=== PATIENT | female | born 1935 | race Caucasian/White ===

== ENCOUNTER 2018-10-19 10:16 | Emergency (ER) | payer OTHER ==
--- OUTSIDE RECORDS SUMMARY | 2018-10-19 10:20 | XMS REPORT | Clinical Summary ---
:1935 Author Organization [facility] Address [address] [place] [address] Care Team Providers Name Role Phone Unavailable Primary Care Provider Unavailable Allergies Active Allergy Reactions Severity Noted Date Comments Salicylates Other (See Comments) 06/08/2016 Pt stated "bleeding" Rosuvastatin 06/08/2016 Desvenlafaxine 06/08/2016 Ezetimibe-Simvastatin 06/08/2016 Medications Medication Sig Dispensed Refills Start Date End Date Status meclizine (ANTIVERT) 25 Take 25 mg by 0 Active MG tablet mouth daily as needed for Dizziness. BIOTIN ORAL Take by mouth. [address] vaginally. 0 Active (PREMARIN) 0.625 mg/gram vaginal cream DOCOSAHEXANOIC ACID/EPA Take by mouth. 0 Active (FISH OIL ORAL) GLUCOSAMINE/CHONDROITIN Take by mouth. 0 Active SULF A (GLUCOSAMINE-CHONDROITIN ORAL) coenzyme Q10 (COQ-10) Take by mouth 0 Active 100 mg capsule daily. CHOLECALCIFEROL, VITAMIN Take by mouth. 0 Active D3, (VITAMIN D3 ORAL) [id number] Take by mouth. 0 Active ORAL nutritional supplement - Take by mouth. 0 Active fiber (JUICE PLUS) Liqd Active Problems Problem Noted Date CVA (cerebral vascular accident) 06/09/2016 Social History Tobacco Use Types Packs/Day Years Used Date Never Smoker Sex Assigned at Date Recorded Not on file Job Start Date Occupation Industry Not on file Not on file Not on file Travel History Travel Start Travel End No recent travel history available. Last Filed Vital Signs Not on file Plan of Treatment Not on file Results Not on fileafter 10/18/2017 Insurance Payer Benefit Plan / Group Subscriber ID Type Phone Address MEDICARE MEDICARE A B xxxxxxxxxx Medicare AETNA - MGD CARE AETNA TRS RETIREES xxxxxxxxxx HMO/POS ([place]) [place] [address]
--- NOTE | 2018-10-19 11:47 | RAD REPORT ---
EXAM DESCRIPTION: RAD - Chest Single View - 10/19/2018 11:41 am CLINICAL HISTORY: CHEST PAIN Chest pain. COMPARISON: Chest Single View dated 01/01/2017; Chest Single View dated 06/08/2016; CHEST PA AND LAT 2 VIEW dated 03/18/2013; CHEST SINGLE VIEW dated 05/16/2012 FINDINGS: Portable technique limits examination quality. Mild emphysematous changes present throughout the lungs. The heart is normal in size. No displaced fr actures. IMPRESSION: Mild COPD.
[2018-10-19 12:12] LABS: Absolute Lymphocytes (CBC) 1.4 K/uL (0.7-4.9); Absolute Monocytes 0.6 K/uL (0.1-1.3); Absolute Neutrophil 3.5 K/uL (1.8-8.0); Basophils % 0.4 % (0-1.3); Eosinophils % 1.9 % (0-4.4); Hematocrit 39.4 % (36.0-45.0); Lymphocytes % 25.3 % (15.3-44.8); MPV 8.9 fL (7.6-11.3); Monocytes % 10.4 % (3.3-12.3); RBC Red Blood Cell Count 4.21 M/uL (3.86-4.86)
[2018-10-19 12:30] LABS: BUN Blood Urea Nitrogen 17 mg/dL (7-18); Bicarbonate 30 mmol/L (21-32); Glucose Level 84 mg/dL (74-106); Potassium 3.8 mmol/L (3.5-5.1); Sodium Level 143 mmol/L (136-145); Troponin (Emerg Dept Use Only) < 0.02 ng/mL (0.0-0.045)
--- NOTE | 2018-10-19 13:02 | EDPHYS ---
Physician Documentation [facility] Name: Matthew North Age: 83 yrs Sex: Female : 1935 Arrival Date: 10/19/2018 Time: 10:20 Bed 4 Private MD: Felipe Ackerman V ED Physician Cali Mckoy HPI: 10/19 12:46 This 83 yrs old Female presents to ER via Ambulatory with complaints of gs Foreign Body In Throat. 12:46 Onset: gradually, yesterday. Associated signs and symptoms: Pertinent positives: chest gs pain, Pertinent negatives: shortness of breath. The chest pain is described as dull. Duration: The patient or guardian reports a single episode, that is now resolved. Modifying factors: The symptoms are alleviated by nothing. the symptoms are aggravated by nothing. Severity of pain: At its worst the pain was moderate in the emergency department the pain has resolved. started after taking a pill felt like didn't go down pain throat and chest resolved her for evaluation. Historical: - Allergies: 10:37 Aspirin; aj1 - Home Meds: 10:37 Aspirin Oral [Active]; atorvastatin 80 mg Oral tab 1 tab once daily [Active]; biotin aj1 Oral [Active]; Calcium with Magnesium [Active]; CoQ-10 Oral [Active]; Fish Oil Oral [Active]; Glucosamine Oral [Active]; Meclizine Oral [Active]; Mirtazapine Oral [Active]; Premarin [Active]; Vitamin D Oral [Active]; - PMHx: 10:37 CVA; Depression; [place]; Vertigo; aj1 - Immunization history:: Flu vaccine is up to date. - Social history:: Smoking status: Patient/guardian denies using tobacco. - Ebola Screening: : Patient denies travel to an Ebola-affected area in the 21 days before illness onset. ROS: 12:46 All other systems are negative. gs Exam: 12:46 Head/Face: Normocephalic, atraumatic. Eyes: Pupils equal round and reactive to light, gs extra-ocular motions intact. Lids and lashes normal. Conjunctiva and sclera are non-icteric and not injected. Cornea within normal limits. Periorbital areas with no swelling, redness, or edema. ENT: Nares patent. No nasal discharge, no septal abnormalities noted. Tympanic membranes are normal and external auditory canals are clear. Oropharynx with no redness, swelling, or masses, exudates, or evidence of obstruction, uvula midline. Mucous membranes moist. Neck: Trachea midline, no thyromegaly or masses palpated, and no cervical lymphadenopathy. Supple, full range of motion without nuchal rigidity, or vertebral point tenderness. No Meningismus. Chest/axilla: Normal chest wall appearance and motion. Nontender with no deformity. No lesions are appreciated. Cardiovascular: Regular rate and rhythm with a normal S1 and S2. No gallops, murmurs, or rubs. Normal PMI, no JVD. No pulse deficits. Respiratory: Lungs have equal breath sounds bilaterally, clear to auscultation and percussion. No rales, rhonchi or wheezes noted. No increased work of breathing, no retractions or nasal flaring. Abdomen/GI: Soft, non-tender, with normal bowel sounds. No distension or tympany. No guarding or rebound. No evidence of tenderness throughout. Back: No spinal tenderness. No costovertebral tenderness. Full range of motion. Skin: Warm, dry with normal turgor. Normal color with no rashes, no lesions, and no evidence of cellulitis. MS/ Extremity: Pulses equal, no cyanosis. Neurovascular intact. Full, normal range of motion. Neuro: Awake and alert, GCS 15, oriented to person, place, time, and situation. Cranial nerves II-XII grossly intact. Motor strength 5/5 in all extremities. Sensory grossly intact. Cerebellar exam normal. Normal gait. 12:46 Constitutional: The patient appears alert, awake. 12:46 ECG was reviewed by the Attending Physician. Vital Signs: 10:37 BP 129 / 87; Pulse 76; Resp 18; Temp 97.9; Pulse Ox 100% on R/A; Weight 61.23 kg (R); aj1 Height 5 ft. 4 in. (162.56 cm) (R); Pain 3/10; 12:04 BP 127 / 68; Pulse 68; Resp 18; Pulse Ox 100% on R/A; ph 10:37 Body Mass Index 23.17 (61.23 kg, 162.56 cm) aj1 MDM: 11:21 Patient medically screened. gs 12:46 Differential diagnosis: coronary artery disease chest wall pain, pharyngeal abrasion. gs Data reviewed: vital signs, nurses notes. Counseling: I had a detailed discussion with the patient and/or guardian regarding: the historical points, exam findings, and any diagnostic results supporting the discharge/admit diagnosis, the need for outpatient follow up. Response to treatment: the patient's symptoms have resolved after treatment, and as a result, I will discharge patient. 10/19 11:22 Order name: Basic Metabolic Panel; Complete Time: 12:45 10/19 11:22 Order name: CBC with Diff; Complete Time: 12:45 10/19 11:22 Order name: Troponin (emerg Dept Use Only); Complete Time: 12:45 10/19 11:22 Order name: XRAY Chest (1 view); Complete Time: 11:56 10/19 11:22 Order name: Cardiac monitoring; Complete Time: 11:51 10/19 11:22 Order name: EKG - Nurse/Tech; Complete Time: 12:24 10/19 11:22 Order name: IV Saline Lock; Complete Time: 11: 10/19 11:22 Order name: Labs collected and sent; Complete Time: 11:52 10/19 11:22 Order name: O2 Per Protocol; Complete Time: :52 10/19 11:22 Order name: O2 Sat Monitoring; Complete Time: : EC:46 Rate is 70 beats/min. Rhythm is regular. [place] interval is normal. QRS interval is normal. gs T waves are Normal. No ST changes noted. Clinical impression: Normal ECG. Interpreted by me. Administered Medications: No medications were administered Disposition: 10/19/18 13:01 Discharged to Home. Impression: pharyngeal abrasion. - Condition is Stable. - Discharge Instructions: Swallowed Foreign Body, Adult. - Medication Reconciliation Form, Thank You Letter, Antibiotic Education, Prescription Opioid Use form. - Follow up: Private Physician; When: 2 - 3 days; Reason: Re-evaluation by your physician. Signatures: Dispatcher [employer] Temi Blanchard RN RN aj1 Nivia Andrade RN RN sv Cali Mckoy MD MD gs Corrections: (The following items were deleted from the chart) 13:19 13:01 10/19/2018 13:01 Discharged to Home. Impression: pharyngeal abrasion. Condition sv is Stable. Forms are Medication Reconciliation Form, Thank You Letter, Antibiotic Education, Prescription Opioid Use. Follow up: Private Physician; When: 2 - 3 days; Reason: Re-evaluation by your physician. gs
--- NOTE | 2018-10-19 13:02 | ER ---
Nurse's Notes [facility] Name: Matthew North Age: 83 yrs Sex: Female : 1935 Arrival Date: 10/19/2018 Time: 10:20 Bed 4 Private MD: Felipe Ackerman V Diagnosis: pharyngeal abrasion Presentation: 10/19 10:33 Presenting complaint: Patient states: "Yesterday about 5 I swallowed a calcium pill and aj1 it just seemed like it wouldn't go down and it never did go down." Reports that she still has the sensation of something stuck in her throat. [facility] called EMS this morning at 0700, they did an EKG, and patient declined transfer at that time. Denies shortness of breath, difficulty swallowing. Transition of care: patient was not received from another setting of care. Onset of symptoms was October 18, 2018 at 17:00. Risk Assessment: Do you want to hurt yourself or someone else? Patient reports no desire to harm self or others. Initial Sepsis Screen: Does the patient meet any 2 criteria? No. Patient's initial sepsis screen is negative. Does the patient have a suspected source of infection? No. Patient's initial sepsis screen is negative. Care prior to arrival: None. 10:33 Method Of Arrival: Ambulatory aj1 10:33 Acuity: LARRY 3 aj1 Triage Assessment: 10:37 General: Appears in no apparent distress. comfortable, Behavior is calm, cooperative, aj1 appropriate for age. Pain: Complains of pain in neck Pain currently is 3 out of 10 on a pain scale. Neuro: Level of Consciousness is awake, alert, obeys commands. Cardiovascular: Patient's skin is warm and dry. Respiratory: Airway is patent Respiratory effort is even, unlabored, Respiratory pattern is regular, symmetrical. Historical: - Allergies: 10:37 Aspirin; aj1 - Home Meds: 10:37 Aspirin Oral [Active]; atorvastatin 80 mg Oral tab 1 tab once daily [Active]; biotin aj1 Oral [Active]; Calcium with Magnesium [Active]; CoQ-10 Oral [Active]; Fish Oil Oral [Active]; Glucosamine Oral [Active]; Meclizine Oral [Active]; Mirtazapine Oral [Active]; Premarin [Active]; Vitamin D Oral [Active]; - PMHx: 10:37 CVA; Depression; [place]; Vertigo; aj1 - Immunization history:: Flu vaccine is up to date. - Social history:: Smoking status: Patient/guardian denies using tobacco. - Ebola Screening: : Patient denies travel to an Ebola-affected area in the 21 days before illness onset. Screenin:03 Abuse screen: Denies threats or abuse. Denies injuries from another. Nutritional ph screening: No deficits noted. Tuberculosis screening: No symptoms or risk factors identified. Fall Risk None identified. Assessment: 11:05 General: Appears in no apparent distress. comfortable, slender, well groomed, Behavior ph is calm, cooperative, appropriate for age, Denies fever, feeling ill. Pain: Denies pain. Neuro: Level of Consciousness is awake, alert, obeys commands, Oriented to person, place, time, situation. Cardiovascular: Reports chest pain, last night after swallowing a calcium tablet, states, " It was hurting all last night. It isn't really hurting now but I figured I should come get it checked out." Pt reports slight discomfort in substernal area Denies nausea, shortness of breath, vomiting, Rhythm is regular. Respiratory: Airway is patent Respiratory effort is even, unlabored, Breath sounds are clear bilaterally. Denies shortness of breath pain with respiration. EENT: Reports pain when swallowing Denies difficulty swallowing. Derm: Skin is intact, Skin is pink, warm \\T\\ dry. Musculoskeletal: Circulation, motion, and sensation intact. Range of motion: intact in all extremities, Swelling absent. 12:04 Reassessment: Patient appears in no apparent distress at this time. Patient and/or ph family updated on plan of care and expected duration. Pain level reassessed. Patient is alert, oriented x 3, equal unlabored respirations, skin warm/dry/pink. Pt resting quietly at this time, VSS, awaiting lab and CXR results, family at bedside. Vital Signs: 10:37 BP 129 / 87; Pulse 76; Resp 18; Temp 97.9; Pulse Ox 100% on R/A; Weight 61.23 kg (R); aj1 Height 5 ft. 4 in. (162.56 cm) (R); Pain 3/10; 12:04 BP 127 / 68; Pulse 68; Resp 18; Pulse Ox 100% on R/A; ph 10:37 Body Mass Index 23.17 (61.23 kg, 162.56 cm) aj1 ED Course: 10:20 Patient arrived in ED. sb2 10:20 Felipe Ackerman MD is Private Physician. sb2 10:35 Triage completed. aj1 10:37 Arm band placed on Patient placed in an exam room. aj1 10:41 Cali Mckoy MD is Attending Physician. gs 10:50 Anastasia Valerio RN is Primary Nurse. ph 11:41 X-ray completed. Portable x-ray completed in exam room. Patient tolerated procedure sg4 well. 11:42 XRAY Chest (1 view) In Process Unspecified. EDMS 11:55 Initial lab(s) drawn, by me, sent to lab. Inserted saline lock: 22 gauge in left ph antecubital area, using aseptic technique. Blood collected. 12:03 Patient has correct armband on for positive identification. Placed in gown. Bed in low ph position. Call light in reach. Side rails up X 1. waiver analyst on. Pulse ox on. NIBP on. Warm blanket given. 12:24 EKG done, by ED staff, reviewed by Cali Mckoy MD. em1 Administered Medications: No medications were administered Outcome: 13:01 Discharge ordered by . 13:19 Patient left the ED. sv Signatures: Dispatcher [employer] EDMS Temi Vergara RN RN aj1 Nivia Andrade RN RN sv Martinez, Eric em1 Anastasia Valerio RN RN Cali Mckoy MD MD Jaclyn Herrera sb2 Neda Puentes sg4 Corrections: (The following items were deleted from the chart) 10:35 10:33 Presenting complaint: Patient states: "Yesterday about 5 I swallowed a calcium aj1 pill and it just seemed like it wouldn't go down and it never did go down." Reports that she still has the sensation of something stuck in her throat. [facility] called EMS this morning at 0700, they did an EKG, and patient declined transfer at that time. aj1
[2018-10-19 13:24] VITALS: TEMP 97.9; O2SAT 100
[2018-10-19 13:25] VITALS: BP 127/68
--- NOTE | 2018-10-20 12:00 | EKG ---
Test Date: 2018-10-19 Test Time: 12:05:20 Social Scientist: GLENDY MEASUREMENT RESULTS: Intervals: Rate: 70 RI: 164 QRSD: 70 QT: 384 QTc: 414 [place]: P: -21 RI: 164 QRS: 34 T: 17 INTERPRETIVE STATEMENTS: Normal sinus rhythm Normal ECG Compared to ECG 01/01/2017 02:06:34 No significant changes Electronically Signed On 10-20-18 11:59:49 PROCESS COACH by Fortino Shane
== END 2018-10-19 13:19 | disposition home or self-care (01) ==
LOC: ER 10:16
DX: S10.11XA Abrasion of throat, initial encounter (principal); X58.XXXA Exposure to other specified factors, initial encounter; Y93.89 Activity, other specified; Y92.9 Unspecified place or not applicable; Z86.73 Personal history of transient ischemic attack (TIA), and cerebral infarction without residual deficits; Z88.6 Allergy status to analgesic agent; F32.9 Major depressive disorder, single episode, unspecified
CPT/HCPCS: 36415; 71045; 80048; 84484; 85025; 93005; 99284

== ENCOUNTER 2019-03-12 09:42 | Emergency (ER) | payer OTHER ==
--- OUTSIDE RECORDS SUMMARY | 2019-03-12 09:54 | XMS REPORT | Clinical Summary ---
:1935 Author Organization [facility] Address [address] [place] [address] Care Team Providers Name Role Phone Unavailable [...] mouth. 0 Active D3, (VITAMIN D3 ORAL) [id number] Take by mouth. 0 Active ORAL nutritional [...] Not on file Results Not on fileafter 03/11/2018 Insurance Payer Benefit Plan / Group Subscriber ID Type Phone Address MEDICARE MEDICARE A B xxxxxxxxxx Medicare AETNA - MGD CARE AETNA TRS RETIREES xxxxxxxxxx HMO/POS ([place]) [place] [address]
[2019-03-12 10:33] LABS: Absolute Lymphocytes (CBC) 0.6 K/uL (0.7-4.9); Absolute Monocytes 0.4 K/uL (0.1-1.3); Basophils % 0.2 % (0-1.3); Eosinophils % 1.3 % (0-4.4); Lymphocytes % 9.4 % (15.3-44.8); MPV 8.6 fL (7.6-11.3); RBC Red Blood Cell Count 4.18 M/uL (3.86-4.86)
[2019-03-12] MEDS ORDERED: NA CHLORIDE 0.9% 1,000 ML ONE (10:33)
[2019-03-12 10:34] LABS: Protime INR 1.05
[2019-03-12 10:35] LABS: Urine Blood TRACE (NEG); Urine Glucose NEGATIVE (NEG); Urine Protein NEGATIVE (NEG); Urine Specific Gravity 1.015 (1.005-1.030)
[2019-03-12 10:59] LABS: ALT/SGPT 29 U/L (12-78); AST/SGOT 21 U/L (15-37); Albumin 3.5 g/dL (3.4-5.0); Alkaline Phosphatase 43 U/L (45-117); BUN Blood Urea Nitrogen 19 mg/dL (7-18); Bicarbonate 28 mmol/L (21-32); Bilirubin Direct 0.1 mg/dL (0-0.2); Bilirubin Total 0.5 mg/dL (0.2-1.0); Glucose Level 89 mg/dL (74-106); NT PRO-BNP 70 pg/mL (<450); Protein, Total 7.1 g/dL (6.4-8.2); Sodium Level 143 mmol/L (136-145); Troponin (Emerg Dept Use Only) < 0.02 ng/mL (0.0-0.045)
--- NOTE | 2019-03-12 11:10 | EKG ---
Test Date: 2019-03-12 Test Time: 10:31:43 Final Canoe Inspector: CINDI MEASUREMENT RESULTS: Intervals: Rate: 76 [place]: 164 QRSD: 78 QT: 366 QTc: 411 [place]: P: 55 [place]: 164 QRS: 26 T: 23 INTERPRETIVE STATEMENTS: Normal sinus rhythm Normal ECG Compared to ECG 10/19/2018 12:05:20 No significant changes Electronically Signed On 03-12-19 11:09:34 CDT by Rodri Randall
--- NOTE | 2019-03-12 11:19 | RAD REPORT ---
EXAM DESCRIPTION: RAD - Chest Single View - 03/12/2019 11:12 am CLINICAL HISTORY: COUGH Chest pain. COMPARISON: Chest Pa And Lat (2 Views) dated 02/12/2019; Chest Single View dated 10/19/2018; Chest Sing le View dated 01/01/2017; Chest Single View dated 06/08/2016 FINDINGS: Portable technique limits examination quality. Diffuse COPD is present. The heart is normal in size. No displaced fractures. IMPRESSION: Prominent COPD.
--- NOTE | 2019-03-12 11:26 | RAD REPORT ---
EXAM DESCRIPTION: MRI - Brain Wo Cont - 03/12/2019 11:17 am CLINICAL HISTORY: Dizziness COMPARISON: 2016 TECHNIQUE: Axial, sagittal, and coronal magnetic images of the brain were obtained. Contrast was not requested FINDINGS: Mild to moderate signal within periventricular, deep and subcortical white matter without significant change likely ischemic changes secondary to small vessel disease. Diffusion-weighted/ADC mapping does not reveal evidence of acute infarction. The ventricles are normal caliber. An extra-axial fluid collection is not present The sinuses and mastoids are clear. IMPRESSION: No acute abnormality displayed
--- NOTE | 2019-03-12 12:24 | ER ---
Nurse's Notes [facility] Name: Matthew North Age: 83 yrs Sex: Female : 1935 Arrival Date: 03/12/2019 Time: 09:44 Bed 7 Private MD: Diagnosis: Nausea and vomiting;Weakness Presentation: 03/12 09:44 Presenting complaint: EMS states: pt reports having breakfast and then walking back to her apartment at [facility], becoming nauseated and dizzy, reports laying down for a nap but unable to sleep with the nausea. Transition of care: patient was not received from another setting of care. Onset of symptoms was March 12, 2019. Risk Assessment: Do you want to hurt yourself or someone else? Patient reports no desire to harm self or others. Initial Sepsis Screen: Does the patient meet any 2 criteria? No. Patient's initial sepsis screen is negative. Does the patient have a suspected source of infection? No. Patient's initial sepsis screen is negative. Care prior to arrival: None. 09:44 Method Of Arrival: EMS: [facility] 09:44 Acuity: LARRY 3 sg Historical: - Allergies: 09:49 Aspirin; sg - Home Meds: 11:45 Premarin 3 times weekly [Active]; mirtazapine 7.5 mg oral tab nightly [Active]; sv atorvastatin 80 mg Oral tab 1 tab once daily [Active]; aspirin 81 mg oral chew once daily [Active]; Pure encapsulation 2 each day [Active]; Glucosamine 1000 mg daily Oral [Active]; Calcium w/ Magnesium and zinc 1 tab daily [Active]; lutein 20 mg oral tab daily [Active]; - PMHx: 09:49 CVA; Depression; [place]; Vertigo; sg - Immunization history:: Adult Immunizations up to date. - Social history:: Smoking status: Patient/guardian denies using tobacco. - Ebola Screening: : Patient negative for fever greater than or equal to 101.5 degrees Fahrenheit, and additional compatible Ebola Virus Disease symptoms Patient denies exposure to infectious person Patient denies travel to an Ebola-affected area in the 21 days before illness onset No symptoms or risks identified at this time. - Family history:: not pertinent. Vital Signs: 09:46 Pulse 82; Resp 16; Temp 97.7; Pulse Ox 97% on R/A; sg 09:50 BP 133 / 69; sg NIH Stroke Scale Scores: 10:41 NIHSS Score: 0 hawa ED Course: 09:44 Patient arrived in ED. 09:46 Triage completed. 09:46 Arm band placed on. 09:53 Gennaro Gomes MD is Attending Physician. hawa 10:34 Initial lab(s) drawn, by fl, sent to lab. Urine collected: clean catch specimen, clear, ms Amount Voided: 40mL EKG done, by ED staff, reviewed by Gennaro Gomes MD. Inserted saline lock: 20 gauge in right antecubital area, using aseptic technique. Blood collected. 10:38 EKG done, by compressor technician. reviewed by Gennaro Gomes MD. 3 11:10 Brain Wo Cont In Process Unspecified. EDMS 11:11 X-ray completed. Portable x-ray completed in exam room. Patient tolerated procedure mh1 well. 11:14 XRAY Chest (1 view) In Process Unspecified. EDMS 11:17 Patient moved to MRI via wheelchair. 11:54 Repeat EKG was done. 3 13:08 Andrea Barkley, RN is Primary Nurse. sg Administered Medications: 10:31 Drug: NS 0.9% 500 ml Route: IV; Rate: bolus; Site: right antecubital; sv 11:00 Follow up: Response: No adverse reaction; IV Status: Completed infusion; IV Intake: sv 500ml 10:35 Drug: NS 0.9% 1000 ml Route: IV; Rate: 125 ml/hr; Site: right antecubital; sv Intake: 11:00 IV: 500ml; Total: 500ml. sv Outcome: 12:23 Discharge ordered by . hawa 13:09 Patient left the ED. NIH Stroke Scale - NIH Stroke Score Date: 03/12/2019 Time: 10:41 Total Score = 0 1a. Level of Consciousness (LOC) - 0(Alert) 1b. Level of Consciousness (LOC) (Year \T\ Age) - 0(Both) 1c. LOC Commands (Open \T\ Closes Eyes/News Copy Editor) - 0(Both) 2. Best Gaze (Lateral Gaze Paresis) - 0(Normal) 3. Visual Field Loss - 0(No visual loss) 4. Facial Palsy - 0(Normal) 5a. Left Arm: Motor (10-second hold) - 0(No drift) 5b. Right Arm: Motor (10-second hold) - 0(No drift) 6a. Left Leg: Motor (5-second hold - always test supine) - 0(No drift) 6b. Right Leg: Motor (5-second hold - always test supine) - 0(No drift) 7. Limb Ataxia (finger/nose \T\ heel/lockhart - test with eyes open) - 0(Absent) 8. Sensory Loss (pinprick arms/legs/face) - 0(Normal) 9. Best Language: Aphasia (description/naming/reading) - 0(No aphasia) 10. Dysarthria (speech clarity - read or repeat words) - 0(Normal) 11. Extinction and Inattention (visual/tactile/auditory/spatial/personal) - 0(No abnormality) Initials: hawa Signatures: Dispatcher [employer] Nivia Potts RN RN sv Gay, Steven, RN RN sg Anderson, Corey, MD MD cha Compean, Lorena lc Harvey, Martha 1 Shahla Gimenez ms, Jayshree 3
--- NOTE | 2019-03-12 12:25 | EDPHYS ---
Physician Documentation [facility] Name: Matthew North Age: 83 yrs Sex: Female : 1935 Arrival Date: 03/12/2019 Time: 09:44 Bed 7 Private MD: ED Physician Gennaro Gomes HPI: 03/12 10:41 This 83 yrs old Female presents to ER via EMS with complaints of hawa Nausea/Vomiting. 10:41 The patient presents to the emergency department with nausea, vomiting. Onset: The hawa symptoms/episode began/occurred this morning, today. Possible causes: unknown. The symptoms are aggravated by movement, The symptoms are alleviated by nothing. Associated signs and symptoms: Pertinent positives: nausea, vomiting. Severity of symptoms: At their worst the symptoms were. The patient has not experienced similar symptoms in the past. Historical: - Allergies: 09:49 Aspirin; sg - Home Meds: 11:45 Premarin 3 times weekly [Active]; mirtazapine 7.5 mg oral tab nightly [Active]; sv atorvastatin 80 mg Oral tab 1 tab once daily [Active]; aspirin 81 mg oral chew once daily [Active]; Pure encapsulation 2 each day [Active]; Glucosamine 1000 mg daily Oral [Active]; Calcium w/ Magnesium and zinc 1 tab daily [Active]; lutein 20 mg oral tab daily [Active]; - PMHx: 09:49 CVA; Depression; QUECHAN; Vertigo; sg - Immunization history:: Adult Immunizations up to date. - Social history:: Smoking status: Patient/guardian denies using tobacco. - Ebola Screening: : Patient negative for fever greater than or equal to 101.5 degrees Fahrenheit, and additional compatible Ebola Virus Disease symptoms Patient denies exposure to infectious person Patient denies travel to an Ebola-affected area in the 21 days before illness onset No symptoms or risks identified at this time. - Family history:: not pertinent. ROS: 10:41 Constitutional: Negative for fever, chills, and weight loss, Eyes: Negative for injury, hawa pain, redness, and discharge, ENT: Negative for injury, pain, and discharge, Neck: Negative for injury, pain, and swelling, Cardiovascular: Negative for chest pain, palpitations, and edema, Respiratory: Negative for shortness of breath, cough, wheezing, and pleuritic chest pain, Back: Negative for injury and pain, : Negative for injury, bleeding, discharge, and swelling, MS/Extremity: Negative for injury and deformity, Skin: Negative for injury, rash, and discoloration, Neuro: Negative for headache, weakness, numbness, tingling, and seizure, Psych: Negative for depression, anxiety, suicide ideation, homicidal ideation, and hallucinations, Allergy/Immunology: Negative for hives, rash, and allergies, Endocrine: Negative for neck swelling, polydipsia, polyuria, polyphagia, and marked weight changes, Hematologic/Lymphatic: Negative for swollen nodes, abnormal bleeding, and unusual bruising. 10:41 Abdomen/GI: Positive for nausea and vomiting. Exam: 10:41 Constitutional: This is a well developed, well nourished patient who is awake, alert, hawa and in no acute distress. Head/Face: Normocephalic, atraumatic. Eyes: Pupils equal round and reactive to light, extra-ocular motions intact. Lids and lashes normal. Conjunctiva and sclera are non-icteric and not injected. Cornea within normal limits. Periorbital areas with no swelling, redness, or edema. ENT: Nares patent. No nasal discharge, no septal abnormalities noted. Tympanic membranes are normal and external auditory canals are clear. Oropharynx with no redness, swelling, or masses, exudates, or evidence of obstruction, uvula midline. Mucous membranes moist. Neck: Trachea midline, no thyromegaly or masses palpated, and no cervical lymphadenopathy. Supple, full range of motion without nuchal rigidity, or vertebral point tenderness. No Meningismus. Chest/axilla: Normal chest wall appearance and motion. Nontender with no deformity. No lesions are appreciated. Cardiovascular: Regular rate and rhythm with a normal S1 and S2. No gallops, murmurs, or rubs. Normal PMI, no JVD. No pulse deficits. Respiratory: Lungs have equal breath sounds bilaterally, clear to auscultation and percussion. No rales, rhonchi or wheezes noted. No increased work of breathing, no retractions or nasal flaring. Abdomen/GI: Soft, non-tender, with normal bowel sounds. No distension or tympany. No guarding or rebound. No evidence of tenderness throughout. Back: No spinal tenderness. No costovertebral tenderness. Full range of motion. Skin: Warm, dry with normal turgor. Normal color with no rashes, no lesions, and no evidence of cellulitis. MS/ Extremity: Pulses equal, no cyanosis. Neurovascular intact. Full, normal range of motion. Neuro: Awake and alert, GCS 15, oriented to person, place, time, and situation. Cranial nerves II-XII grossly intact. Motor strength 5/5 in all extremities. Sensory grossly intact. Cerebellar exam normal. Normal gait. Psych: Awake, alert, with orientation to person, place and time. Behavior, mood, and affect are within normal limits. Vital Signs: 09:46 Pulse 82; Resp 16; Temp 97.7; Pulse Ox 97% on R/A; sg 09:50 BP 133 / 69; sg NIH Stroke Scale Scores: 10:41 NIHSS Score: 0 hawa MDM: 09:53 Patient medically screened. [facility] 10:43 Data reviewed: vital signs, nurses notes, lab test result(s), EKG, radiologic studies, [facility] CT scan, MRI, plain films. 03/12 10:08 Order name: Basic Metabolic Panel; Complete Time: 11:27 [facility] 03/12 10:08 Order name: CBC with Diff; Complete Time: 10:39 [facility] 03/12 10:08 Order name: LFT's; Complete Time: 11:27 [facility] 03/12 10:08 Order name: Magnesium; Complete Time: 11:27 [facility] 03/12 10:08 Order name: NT PRO-BNP; Complete Time: 11:27 [facility] 03/12 10:08 Order name: PT-INR; Complete Time: 11:27 [facility] 03/12 10:08 Order name: Troponin (emerg Dept Use Only); Complete Time: 11:27 [facility] 03/12 10:08 Order name: XRAY Chest (1 view); Complete Time: 11:27 [facility] 03/12 10:08 Order name: Urine Culture [facility] 03/12 10:33 Order name: Urine Dipstick--Ancillary (enter results); Complete Time: 10:39 03/12 11:29 Order name: Troponin (emerg Dept Use Only): 1135am; Complete Time: 12:17 [facility] 03/12 10:08 Order name: EKG; Complete Time: 10:13 [facility] 03/12 10:08 Order name: Cardiac monitoring; Complete Time: 10:34 [facility] 03/12 10:08 Order name: EKG - Nurse/Tech; Complete Time: 10:34 [facility] 03/12 10:08 Order name: IV Saline Lock; Complete Time: 10:34 [facility] 03/12 10:08 Order name: Labs collected and sent; Complete Time: 10:34 [facility] 03/12 10:08 Order name: O2 Per Protocol; Complete Time: 10:34 [facility] 03/12 10:08 Order name: O2 Sat Monitoring; Complete Time: 10:34 [facility] 03/12 10:08 Order name: Urine Dipstick-Ancillary (obtain specimen); Complete Time: 10:33 [facility] 03/12 10:46 Order name: Brain Wo Cont; Complete Time: 11:27 [facility] 03/12 11:29 Order name: EKG; Complete Time: 11:32 [facility] 03/12 11:29 Order name: EKG - Nurse/Tech; Complete Time: 11:45 [facility] Administered Medications: 10:31 Drug: NS 0.9% 500 ml Route: IV; Rate: bolus; Site: right antecubital; sv 11:00 Follow up: Response: No adverse reaction; IV Status: Completed infusion; IV Intake: sv 500ml 10:35 Drug: NS 0.9% 1000 ml Route: IV; Rate: 125 ml/hr; Site: right antecubital; sv Disposition: 03/12/19 12:23 Discharged to Home. Impression: Nausea and vomiting, Weakness. - Condition is Stable. - Discharge Instructions: Weakness, Fatigue, Weakness, Lbxy-id-Buwb, Aspirin and Your Heart. - Prescriptions for Zofran 4 mg Oral Tablet - take 1 tablet by ORAL route every 12 hours As needed; 14 tablet. Meclizine 25 mg Oral Tablet - take 1 tablet by ORAL route every 8 hours As needed; 21 tablet. - Medication Reconciliation Form, Thank You Letter, Antibiotic Education, Prescription Opioid Use form. - Follow up: Private Physician; When: 2 - 3 days; Reason: Recheck today's complaints, Continuance of care, Re-evaluation by your physician. - Problem is new. - Symptoms have improved. NIH Stroke Scale - NIH Stroke Score Date: 03/12/2019 Time: 10:41 Total Score = 0 1a. Level of Consciousness (LOC) - 0(Alert) 1b. Level of Consciousness (LOC) (Year \T\ Age) - 0(Both) 1c. LOC Commands (Open \T\ Closes Eyes/Corrosion Control Fitter) - 0(Both) 2. Best Gaze (Lateral Gaze Paresis) - 0(Normal) 3. Visual Field Loss - 0(No visual loss) 4. Facial Palsy - 0(Normal) 5a. Left Arm: Motor (10-second hold) - 0(No drift) 5b. Right Arm: Motor (10-second hold) - 0(No drift) 6a. Left Leg: Motor (5-second hold - always test supine) - 0(No drift) 6b. Right Leg: Motor (5-second hold - always test supine) - 0(No drift) 7. Limb Ataxia (finger/nose \T\ heel/lockhart - test with eyes open) - 0(Absent) 8. Sensory Loss (pinprick arms/legs/face) - 0(Normal) 9. Best Language: Aphasia (description/naming/reading) - 0(No aphasia) 10. Dysarthria (speech clarity - read or repeat words) - 0(Normal) 11. Extinction and Inattention (visual/tactile/auditory/spatial/personal) - 0(No abnormality) Initials: hawa Signatures: Dispatcher [employer] [facility] Nivia Andrade RN RN sv Gay, Steven, RN RN sg Anderson, Corey, MD MD cha Corrections: (The following items were deleted from the chart) 10:45 10:43 MR STROKE PROTOCOL+MRI.RAD.BRZ ordered. [facility] 13:09 12:23 03/12/2019 12:23 Discharged to Home. Impression: Nausea and vomiting; sg Weakness. Condition is Stable. Discharge Instructions: Weakness, Fatigue, Weakness, Kair-yc-Keqv, Aspirin and Your Heart. Prescriptions for Zofran 4 mg Oral Tablet - take 1 tablet by ORAL route every 12 hours As needed; 14 tablet. and Forms are Medication Reconciliation Form, Thank You Letter, Antibiotic Education, Prescription Opioid Use. Follow up: Private Physician; When: 2 - 3 days; Reason: Recheck today's complaints, Continuance of care, Re-evaluation by your physician. Problem is new. Symptoms have improved. hawa
[2019-03-12 18:06] VITALS: TEMP 97.7; O2SAT 97
[2019-03-12 18:07] VITALS: BP 133/69
--- NOTE | 2019-03-13 07:20 | EKG ---
Test Date: 2019-03-12 Test Time: 11:42:34 [employer]: CINDI MEASUREMENT RESULTS: Intervals: Rate: 79 PA: 154 QRSD: 78 QT: 374 QTc: 428 [place]: P: -18 PA: 154 QRS: 45 T: 13 INTERPRETIVE STATEMENTS: Normal sinus rhythm Possible Inferior infarct, age undetermined Abnormal ECG Compared to ECG 03/12/2019 10:31:43 Myocardial infarct finding now present Electronically Signed On 03-13-19 07:16:13 CDT by Rodri Randall
== END 2019-03-12 13:09 | disposition home or self-care (01) ==
LOC: ER 09:42
DX: R11.2 Nausea with vomiting, unspecified (principal); R53.1 Weakness; Z86.73 Personal history of transient ischemic attack (TIA), and cerebral infarction without residual deficits; F32.9 Major depressive disorder, single episode, unspecified
CPT/HCPCS: 93005 ×2; 87088; 85025; 87086; 80048; 36415; 83735; 85610; 80076; 81003; 84484 ×2; 83880; 71045; 70551; 99285; J7030

== ENCOUNTER 2020-07-29 07:16 | Emergency (ER) | payer OTHER ==
--- OUTSIDE RECORDS SUMMARY | 2020-07-29 07:24 | XMS REPORT ---
:1935 Author Organization [facility] Address [address] [facility] [address] [place] [address] Care Team Providers Name Role Phone Sourav Bermudez Unavailable [phone] PROBLEMS No Information ALLERGIES No Known Allergies ENCOUNTERS from 1935 to 2020-07-07 Encounter Location Date Provider Diagnosis [facility] [address] Jun, Sourav Bermudez Pain , joint, [facility], [place], operated [facility] [address], right [place], [place] M25.511 ; Subac romial [id number] bursitis of rig ht shoulder joint M75.51 and Bicipital tendinitis of r ight shoulder M75.21 IMMUNIZATIONS Vaccine Route Administration Date Status Bupivicaine [place] Unknown Jul 05, 2020 Administered Kenalog (Triamcinolone) Unknown Jul 05, 2020 Administ ered SOCIAL HISTORY Tobacco Use: Social History Observation Description Date Details (start date - stop date) Never Smoker Sex Assigned At : Social History Observation Description Sex Assigned At Unknown Alcohol Screen Question Answer Notes Did you have a drink containing alcohol in the past Yes year? Points 1 Interpretation Negative How often did you have 6 or more drinks on one Never (0 poin ts) occasion in the past year? How many drinks did you have on a typical day when 1 or 2 (0 points) you were drinking in the past year? How often did you have a drink containing alcohol in Monthly or less (1 point) the past year? Tobacco Use/Smoking Question Answer Notes Are you a never smoker Additional Findings: Tobacco Non-User Current non-smoker REASON FOR REFERRAL No Information VITAL SIGNS Height 64 in Jun, Weight 130.4 lbs Jun, BMI 22.38 kg/m2 Jun, Blood pressure systolic 112 mm Hg Jun, Blood pressure diastolic 72 mm Hg Jun, MEDICATIONS Medication SIG (Take, Route, Frequency, Duration) Start Date En d Date Status Myrbetriq Active Mirtazapine Active Premarin Active Pantoprazole Sodium Active atorvastatin Active Gaviscon Active Meclizine HCl Active PROCEDURES No Information RESULTS No Results REASON FOR VISIT New >3yrs: Rt Shoulder- xray ( silva pt) MEDICAL (GENERAL) HISTORY Type Description Date Medical History dizzy spells Medical History stroke spring 2016 Medical History depression Medical History GERD Surgical History oral surgery -metal Goals Section No Information Health Concerns No Information MEDICAL EQUIPMENT No Information MENTAL STATUS No Information FUNCTIONAL STATUS No Information ASSESSMENTS Encounter Date Diagnosis Notes Jun, Pain, joint, shoulder, right (ICD-10 - M 25.511) Jun, Bicipital tendinitis of right shoulder ( ICD-10 - M75.21) Jun, Subacromial bursitis of right shoulder j oint (ICD-10 - M75.51) PLAN OF TREATMENT Treatment Notes Assessment Notes Clinical Notes Subacromial bursitis of right I discussed with the patient a t shoulder joint length her diagnosis and treatment plan and he expressed understanding. We will proceed with conservative treatment measures including corticosteroid injection and home exercise program. The patient underwent right shoulder subacromial kenalog injection without complication. The patient was instructed to refrain from strenuous activities for the next 24 hours and to ice the area. She will return to clinic as needed. Bicipital tendinitis of right discussed with the patient at length shoulder her diagnosis and treatment plan and he expressed understanding. We will proceed with conservative treatment measures including corticosteroid injection and home exercise program. The patient underwent right shoulder subacromial kenalog injection without complication. The patient was instructed to refrain from strenuous activities for the next 24 hours and to ice the area. She will return to clinic as needed. Treatment Notes Test Name Order Date X-RAY EXAM SHOULDER 2 VIEWS ([id number]) 2020-07-07 Next Appt Details prn Reason: Insurance Providers Payer Name Payer Address Payer Insured Patient Coverage Cover age End Phone Name Relationship to Start Date Edward e Insured [employer] [address] [address] [phone] Jerome Yi MEDICARE [place] 023 e [phone]
--- OUTSIDE RECORDS SUMMARY | 2020-07-29 07:24 | XMS REPORT | Continuity of Care Document ---
:1935 Author Organization [facility] t Address [address] [place] [address] Care Team Providers Name Role Phone Unavailable Unavailable Unavailable Problems Condition Condition Condition Status Onset Resolution Last Treating Co mments Source Name Details Category Date Date Treatment Clinician Date CVA CVA Disease Active [facility]rebral [facility]-09 [place] [facility] - vascular vascular 00:00: Medica l accident) accident) 00 Cent er Allergies, Adverse Reactions, Alerts Allergy Allergy Status Severity Reaction(s) Onset Inactive Treating Comm ents Source Name Type Date Date Clinician Salicyla Drug Active Other (See Pt stated [facility] Comments) 06-08 "bleeding Rafaela kes - nce 00:00: " Medical 00 Raphine Rosuvast Drug Active [facility]: Medical 00 Center Desvenla Drug Active [facility] fax[facility] 06[facility]08 [facility] 00:00: Medical 00 Center Ezetimib Drug Active [facility] 06-08 [facility] - tatin nce 00:00: Medical 00 Raphine Social History Social Habit Start Date Stop Date Quantity Comments Source Sex Assigned At [facility] Alcohol intake 2016-06-08 2016-06-[address] [facility] - 00:00:00 00:00:00 Medical Center Smoking Status Start Date Stop Date Source Never smoker [facility] Medications Ordered Filled Start Stop Current Ordering Indication Dosage Frequency Signature Comments Components Source Medication Medication Date Date Medication? Clinician (SIG) Name Name mecjazminzine Yes 25mg Take [address] (ANTIVERT) 06-09 by mouth [facility] - 25 MG 13:23: daily as Medical tablet 49 needed for Center Dizziness. BIOTIN ORAL Yes Take by [facility] St 06-09 mouth. [facility] - 13:23: [place] [address] [facility] estrogens -03 vaginally. Luke s - (PREMARIN) 13:23: Medical 0.625 Center mg/gram vaginal cream DOCOSAHEXAN Yes Take by [facility] OIC 06-09 mouth. [facility] - ACID/EPA 13:23: Medical (FISH OIL 49 Center ORAL) GLUCOSAMINE Yes Take by [facility] /CHONDROITI 06-09 mouth. [facility] - N SULF A 13:23: Medical (GLUCOSAMIN Center E-CHONDROIT IN ORAL) coenzyme Yes QD Take by [facility] Q10 06-09 mouth [facility] - (COQ-10) 13:23: daily. Medical 100 mg Center capsule CHOLECALCIF Yes Take by [facility] RENAE, 06-09 mouth. [facility] - VITAMIN D3, 13:23: Medica l (VITAMIN D3 49 Center ORAL) CALCIUM-MAG Yes Take by [facility] NESIUM-ZINC 06-09 mouth. [facility] - ORAL 13:23: [place] [address] Center nutritional Yes Take by [facility] supplement 06-09 mouth. [facility] - - fiber 13:23: Medical (JUICE Center PLUS) Liqd Procedures This patient has no known procedures. Encounters Start End Encounter Admission Attending Care Care Encounter Source Date/Time Date/Time Type Type Clinicians Facility Department ID 2020-07-05 2020-07-05 [facility] [id number] [facility] 00:00:00 00:00:00 [facility] Results This patient has no known results.
--- OUTSIDE RECORDS SUMMARY | 2020-07-29 07:24 | XMS REPORT | Clinical Summary ---
:[address] [facility] Address [address] [place] [address] Care Team Providers Name Role Phone Unavailable Primary Care Provider Unavailable Allergies Active Allergy Reactions Severity Noted Date Comments Salicylates Other (See Comments) 06/08/2016 Pt stat ed "bleeding" Rosuvastatin 06/08/2016 Desvenlafaxine 06/08/2016 Ezetimibe-Simvastatin 06/08/2016 Medications Medication Sig Dispensed Refills Start Date End Date Status meclizine (ANTIVERT) 25 Take 25 mg by 0 Active MG tablet mouth daily as needed for Dizziness. BIOTIN ORAL Take by mouth. 0 Act [address]iza conjugated estrogens Place vaginally. 0 Active (PREMARIN) 0.625 mg/gram vaginal cream DOCOSAHEXANOIC ACID/EPA Take by mouth. 0 Active (FISH OIL ORAL) GLUCOSAMINE/CHONDROITIN Take by mouth. 0 Active SULF A (GLUCOSAMINE-CHONDROITIN ORAL) coenzyme Q10 (COQ-10) Take by mouth 0 Active 100 mg capsule daily. CHOLECALCIFEROL, VITAMIN Take by mouth. 0 Active D3, (VITAMIN D3 ORAL) [id number] Take by mouth. 0 Active ORAL nutritional supplement - Take by mouth. 0 Active fiber (JUICE PLUS) Liqd Active Problems Problem Noted Date CVA (cerebral vascular accident) 06/09/2016 Social History Tobacco Use Types Packs/Day Years Used Date Never Smoker Alcohol Use Drinks/Week oz/Week Comments Not Asked Sex Assigned at Date Recorded Not on file Last Filed Vital Signs Not on file Plan of Treatment Not on file Results Not on fileafter 07/29/2019 Insurance Payer Benefit Plan / Subscriber ID Effective Dates Phone Addre ss Type Group MEDICARE MEDICARE A B [id number] 1999-Present Medicare AETNA - MGD CARE AETNA TRS [id number] 2012-Presen HMO/POS RETIREES t
[2020-07-29 08:31] LABS: Absolute Lymphocytes (CBC) 1.4 K/uL (0.7-4.9); Basophils % 0.6 % (0-1.3); Hematocrit 37.8 % (36.0-45.0); Lymphocytes % 25.9 % (15.3-44.8); MPV 8.3 fL (7.6-11.3); RBC Red Blood Cell Count 4.16 M/uL (3.86-4.86)
[2020-07-29 08:52] LABS: Albumin 3.6 g/dL (3.4-5.0); Bilirubin Direct 0.2 mg/dL (0-0.2); Bilirubin Total 0.4 mg/dL (0.2-1.0); Potassium 3.8 mmol/L (3.5-5.1); Protein, Total 7.3 g/dL (6.4-8.2)
[2020-07-29 09:56] LABS: Urine Blood 2+ (NEG); Urine Glucose NEGATIVE (NEG); Urine Protein NEGATIVE (NEG); Urine pH 8.5 (5.0-7.0)
--- NOTE | 2020-07-29 10:56 | RAD REPORT ---
EXAM DESCRIPTION: CTAbdomen Pelvis W Contrast - 07/29/2020 10:47 am CLINICAL HISTORY: Abdominal pain. rectal/vaginal bleeding;Abd pain COMPARISON: No comparisons TECHNIQUE: Biphasic CT imaging of the abdomen and pelvis was performed with 100 ml non-ionic IV cont rast. All CT scans are performed using dose optimization technique as appropriate and may include automated exposure control or mA/KV adjustment according to patient size. FINDINGS: The lower lung funes are mildly emphysematous. The liver demonstrates no focal lesion or biliary dilatation. The spleen, pancreas and kidneys are wi thin normal limits. Mild nodularity of both adrenal glands. No bowel obstruction, free air, free fluid or abscess. Sigmoid diverticulosis coli without diverticul itis. The appendix is normal. No evidence of significant lymphadenopathy. Endometrial stripe appears dilated to 2.5 cm. In this age group, this is a worrisome finding. No suspicious bony findings. IMPRESSION: Abnormally dilated endometrial stripe in an otherwise atrophic uterus. In this age group , this degree of dilatation could indicate endometrial carcinoma and direct tissue sampling would be suggested.
--- NOTE | 2020-07-29 11:35 | ER ---
Nurse's Notes [facility] Name: Matthew North Age: 85 yrs Sex: Female : 1935 Arrival Date: 07/29/2020 Time: 07:20 Bed 17 Private MD: Diagnosis: Abnormal uterine and vaginal bleeding, unspecified Presentation: 07/29 07:33 Chief complaint: Patient states: started having bright red rectal bleeding yesterday sv and then might be having vaginal bleeding. Pt is unsure where its coming from. Reports constipation. Denies abd pain/n/v/d. Reports that she has been taking ASA recently. Coronavirus screen: Client denies travel out of the [place] in the last 14 days. At this time, the client does not indicate any symptoms associated with coronavirus-19. Ebola Screen: No symptoms or risks identified at this time. Risk Assessment: Do you want to hurt yourself or someone else? Patient reports no desire to harm self or others. Onset of symptoms was July 28, 2020. 07:33 Method Of Arrival: Ambulatory sv 07:33 Acuity: LARRY 3 sv 07:48 Initial Sepsis Screen: Does the patient meet any 2 criteria? No. Patient's initial ph sepsis screen is negative. Does the patient have a suspected source of infection? No. Patient's initial sepsis screen is negative. Historical: - Allergies: 07:34 Aspirin; sv - Home Meds: 07:59 aspirin 81 mg Oral chew once daily [Active]; Premarin 3 times weekly [Active]; sv mirtazapine 7.5 mg Oral tab 0.5 tabs nightly [Active]; atorvastatin 80 mg Oral tab 1 tab once daily [Active]; Glucosamine 1000 mg daily Oral [Active]; biotin Oral [Active]; Calcium w/ Magnesium and zinc 1 tab daily [Active]; Myrbetriq oral oral [Active]; Meclizine Oral [Active]; pantoprazole oral oral [Active]; Gaviscon Oral [Active]; Pure encapsulation 2 each day [Active]; - PMHx: 07:34 CVA; Depression; [place]OP[place]; Vertigo; sv - Immunization history:: Adult Immunizations up to date. - Social history:: Smoking status: Patient denies any tobacco usage or history of. Screenin:40 Abuse screen: Denies threats or abuse. Denies injuries from another. Nutritional ph screening: No deficits noted. Tuberculosis screening: No symptoms or risk factors identified. Fall Risk None identified. Assessment: 07:46 General: Appears in no apparent distress. comfortable, slender, well groomed, Behavior ph is calm, cooperative, appropriate for age, Denies fever, feeling ill. Pain: Denies pain. Neuro: Level of Consciousness is awake, alert, obeys commands, Oriented to person, place, time, situation. Cardiovascular: Capillary refill < 3 seconds in bilateral fingers Patient's skin is warm and dry. Respiratory: Airway is patent Respiratory effort is even, unlabored. GI: Abdomen is non-distended, Abd is soft and non tender X 4 quads. Reports rectal bleeding, Patient currently denies abdominal pain, diarrhea, nausea, vomiting. : Reports possible vaginal bleeding but is unsure. Derm: Skin is intact, Skin is pink, warm \T\ dry. Musculoskeletal: Circulation, motion, and sensation intact. Range of motion: intact in all extremities. 09:00 Reassessment: Patient appears in no apparent distress at this time. Patient and/or ph family updated on plan of care and expected duration. Pain level reassessed. Patient is alert, oriented x 3, equal unlabored respirations, skin warm/dry/pink. 10:05 Reassessment: Patient appears in no apparent distress at this time. Patient and/or ph family updated on plan of care and expected duration. Pain level reassessed. Patient is alert, oriented x 3, equal unlabored respirations, skin warm/dry/pink. 11:15 Reassessment: Patient appears in no apparent distress at this time. Patient and/or ph family updated on plan of care and expected duration. Pain level reassessed. Patient is alert, oriented x 3, equal unlabored respirations, skin warm/dry/pink. Vital Signs: 07:33 Pulse 80; Resp 16; Pulse Ox 96% ; Weight 57.15 kg; Height 5 ft. 2 in. (157.48 cm); sv 07:38 Temp 98.8(O); mh5 07:40 BP 170 / 74; ph 08:27 BP 154 / 68; Pulse 68; Resp 15; Temp 97.8(O); Pulse Ox 98% on R/A; mh5 10:04 BP 159 / 71; Pulse 71; Resp 16; Pulse Ox 99% on R/A; mh5 11:30 BP 152 / 78; Pulse 70; Resp 18; Temp 97.9; Pulse Ox 99% on R/A; ph 07:33 Body Mass Index 23.05 (57.15 kg, 157.48 cm) sv ED Course: 07:20 Patient arrived in ED. bp1 07:28 Micah Adler MD is Attending Physician. kdr 07:34 Triage completed. sv 07:34 Arm band placed on Patient placed in an exam room, on a stretcher. sv 07:39 Patient has correct armband on for positive identification. Placed in gown. Bed in low mh5 position. Call light in reach. Side rails up X 1. Adult w/ patient. Warm blanket given. bus monitor on. Pulse ox on. NIBP on. 07:40 Anastasia Valerio, RN is Primary Nurse. ph 08:22 Basic Metabolic Panel Sent. mh5 08:22 CBC with Diff Sent. mh5 08:22 Hepatic Function Sent. mh5 08:22 Lipase Sent. mh5 08:23 Initial lab(s) drawn, by il, sent to lab. T\T\S collected, blood band applied to patient. mh5 Inserted saline lock: 20 gauge in left antecubital area, using aseptic technique. 10:48 CT Abd/Pelvis - IV Contrast Only In Process Unspecified. EDMS 11:38 Felipe Ackerman MD is Referral Physician. kdr 11:58 No provider procedures requiring assistance completed. IV discontinued, intact, ph bleeding controlled, No redness/swelling at site. Pressure dressing applied. Administered Medications: No medications were administered Outcome: 11:35 Discharge ordered by . kdr 11:58 Discharged to home via wheelchair, with family. ph 11:58 Condition: good 11:58 Discharge instructions given to patient, family, Instructed on discharge instructions, follow up and referral plans. Demonstrated understanding of instructions, follow-up care. 11:59 Patient left the ED. ph Signatures: Dispatcher [employer] EDMS Nivia Andrade RN RN Micah Adler MD MD kdr Hall, Patricia, RN RN ph Martinez, [facility] Ontiveros [facility] Corrections: (The following items were deleted from the chart) 07:35 07:33 Chief complaint: Patient states: started having bright red rectal bleeding sv yesterday and then might be having vaginal bleeding. Pt is unsure where its coming from. Reports constipation. Denies abd pain/n/v/d. sv
--- NOTE | 2020-07-29 11:35 | EDPHYS ---
Physician Documentation [facility] Name: Matthew North Age: 85 yrs Sex: Female : 1935 Arrival Date: 07/29/2020 Time: 07:20 Bed 17 Private MD: ED Physician Micah Adler HPI: 07/29 18:07 This 85 yrs old Female presents to ER via Ambulatory with complaints of kdr Internal Bleeding. 18:07 The patient has noted bleeding from her rectum or vagina. She is not entirely sure kdr where it was coming from. Onset: The symptoms/episode began/occurred 2 day(s) ago. Severity of symptoms: At their worst the symptoms were mild in the emergency department the symptoms are unchanged. The patient has not experienced similar symptoms in the past. The patient has not recently seen a physician. Historical: - Allergies: 07:34 Aspirin; sv - Home Meds: 07:59 aspirin 81 mg Oral chew once daily [Active]; Premarin 3 times weekly [Active]; sv mirtazapine 7.5 mg Oral tab 0.5 tabs nightly [Active]; atorvastatin 80 mg Oral tab 1 tab once daily [Active]; Glucosamine 1000 mg daily Oral [Active]; biotin Oral [Active]; Calcium w/ Magnesium and zinc 1 tab daily [Active]; Myrbetriq oral oral [Active]; Meclizine Oral [Active]; pantoprazole oral oral [Active]; Gaviscon Oral [Active]; Pure encapsulation 2 each day [Active]; - PMHx: 07:34 CVA; Depression; [place]; Vertigo; sv - Immunization history:: Adult Immunizations up to date. - Social history:: Smoking status: Patient denies any tobacco usage or history of. ROS: 18:07 Constitutional: Negative for fever, chills, and weight loss, Eyes: Negative for injury, kdr pain, redness, and discharge, ENT: Negative for injury, pain, and discharge, Neck: Negative for injury, pain, and swelling, Cardiovascular: Negative for chest pain, palpitations, and edema, Respiratory: Negative for shortness of breath, cough, wheezing, and pleuritic chest pain, Back: Negative for injury and pain, : Negative for injury, bleeding, discharge, and swelling, MS/Extremity: Negative for injury and deformity, Skin: Negative for injury, rash, and discoloration, Neuro: Negative for headache, weakness, numbness, tingling, and seizure activity. Psych: Negative for depression, anxiety, suicide ideation, homicidal ideation, and hallucinations, Allergy/Immunology: Negative for hives, rash, and allergies, Endocrine: Negative for neck swelling, polydipsia, polyuria, polyphagia, and marked weight changes, Hematologic/Lymphatic: Negative for swollen nodes, abnormal bleeding, and unusual bruising. 18:07 Abdomen/GI: Positive for rectal bleeding. 18:07 : Positive for vaginal bleeding. Exam: 18:07 Constitutional: This is a well developed, well nourished patient who is awake, alert, kdr and in no acute distress. Head/Face: Normocephalic, atraumatic. Eyes: Pupils equal round and reactive to light, extra-ocular motions intact. Lids and lashes normal. Conjunctiva and sclera are non-icteric and not injected. Cornea within normal limits. Periorbital areas with no swelling, redness, or edema. ENT: Nares patent. No nasal discharge, no septal abnormalities noted. Tympanic membranes are normal and external auditory canals are clear. Oropharynx with no redness, swelling, or masses, exudates, or evidence of obstruction, uvula midline. Mucous membranes moist. Neck: Trachea midline, no thyromegaly or masses palpated, and no cervical lymphadenopathy. Supple, full range of motion without nuchal rigidity, or vertebral point tenderness. No Meningismus. Chest/axilla: Normal chest wall appearance and motion. Nontender with no deformity. No lesions are appreciated. Cardiovascular: Regular rate and rhythm with a normal S1 and S2. No gallops, murmurs, or rubs. Normal PMI, no JVD. No pulse deficits. Respiratory: Lungs have equal breath sounds bilaterally, clear to auscultation and percussion. No rales, rhonchi or wheezes noted. No increased work of breathing, no retractions or nasal flaring. Back: No spinal tenderness. No costovertebral tenderness. Full range of motion. Skin: Warm, dry with normal turgor. Normal color with no rashes, no lesions, and no evidence of cellulitis. MS/ Extremity: Pulses equal, no cyanosis. Neurovascular intact. Full, normal range of motion. Neuro: Awake and alert, GCS 15, oriented to person, place, time, and situation. Cranial nerves II-XII grossly intact. Motor strength 5/5 in all extremities. Sensory grossly intact. Cerebellar exam normal. Normal gait. Psych: Awake, alert, with orientation to person, place and time. Behavior, mood, and affect are within normal limits. 18:07 Abdomen/GI: Inspection: abdomen appears normal, Bowel sounds: normal, Palpation: abdomen is soft and non-tender, Rectal exam: is unremarkable, rectal tone normal, Stool: normal, brown, guaiac negative, hemorrhoid(s), are not appreciated. Vital Signs: 07:33 Pulse 80; Resp 16; Pulse Ox 96% ; Weight 57.15 kg; Height 5 ft. 2 in. (157.48 cm); sv 07:38 Temp 98.8(O); mh5 07:40 BP 170 / 74; ph 08:27 BP 154 / 68; Pulse 68; Resp 15; Temp 97.8(O); Pulse Ox 98% on R/A; mh5 10:04 BP 159 / 71; Pulse 71; Resp 16; Pulse Ox 99% on R/A; mh5 11:30 BP 152 / 78; Pulse 70; Resp 18; Temp 97.9; Pulse Ox 99% on R/A; ph 07:33 Body Mass Index 23.05 (57.15 kg, 157.48 cm) sv MDM: 11:35 Patient medically screened. kdr 18:07 Data reviewed: vital signs, nurses notes, lab test result(s), radiologic studies. kdr Counseling: I had a detailed discussion with the patient and/or guardian regarding: the historical points, exam findings, and any diagnostic results supporting the discharge/admit diagnosis, lab results, radiology results, the need for outpatient follow up. Physician consultation: Felipe Ackerman MD regarding consult, patient's condition, outpatient follow-up, next week. 07/29 07:37 Order name: Basic Metabolic Panel; Complete Time: 09:35 kdr 07/29 07:37 Order name: CBC with Diff; Complete Time: 09:35 kdr 07/29 07:37 Order name: Hepatic Function; Complete Time: 09:35 kdr 07/29 07:37 Order name: Lipase; Complete Time: 09:35 kdr 07/29 08:33 Order name: Occult Blood--Ancillary; Complete Time: 11:20 sv 10/23 07:37 Order name: IV Saline Lock; Complete Time: 08:22 kdr 07/29 07:37 Order name: Labs collected and sent; Complete Time: : kdr 07/29 09:11 Order name: Urine Dipstick--Ancillary (enter results); Complete Time: 11:20 eb 07/29 09:36 Order name: CT Abd/Pelvis - IV Contrast Only; Complete Time: 11:20 kdr Administered Medications: No medications were administered Disposition: 07/29/20 11:35 Discharged to Home. Impression: Abnormal uterine and vaginal bleeding, unspecified. - Condition is Stable. - Discharge Instructions: Abnormal Uterine Bleeding. - Medication Reconciliation Form, Thank You Letter form. - Follow up: Private Physician; When: 2 - 3 days; Reason: If symptoms return, Further diagnostic work-up, Recheck today's complaints, Continuance of care, Re-evaluation by your physician. Follow up: Felipe Ackerman MD; When: 2 - 3 days; Reason: If symptoms return, Further diagnostic work-up, Recheck today's complaints, Continuance of care, Re-evaluation by your physician. - Problem is new. - Symptoms have improved. Signatures: Dispatcher [employer] EDNivia Portillo RN RN sv Micah Adler MD MD kdr Anastasia Valerio RN RN ph Corrections: (The following items were deleted from the chart) 10:05 08:31 Labs - recollect needed ordered. ph 11:38 11:35 07/29/2020 11:35 Discharged to Home. Impression: Abnormal uterine and vaginal kdr bleeding, unspecified. Condition is Stable. Forms are Medication Reconciliation Form, Thank You Letter, Antibiotic Education, Prescription Opioid Use. Follow up: Private Physician; When: 2 - 3 days; Reason: If symptoms return, Further diagnostic work-up, Recheck today's complaints, Continuance of care, Re-evaluation by your physician. Problem is new. Symptoms have improved. kdr 11:59 11:38 07/29/2020 11:35 Discharged to Home. Impression: Abnormal uterine and vaginal ph bleeding, unspecified. Condition is Stable. Discharge Instructions: Abnormal Uterine Bleeding. Forms are Medication Reconciliation Form, Thank You Letter. Follow up: Private Physician; When: 2 - 3 days; Reason: If symptoms return, Further diagnostic work-up, Recheck today's complaints, Continuance of care, Re-evaluation by your physician. Follow up: Felipe Ackerman; When: 2 - 3 days; Reason: If symptoms return, Further diagnostic work-up, Recheck today's complaints, Continuance of care, Re-evaluation by your physician. Problem is new. Symptoms have improved. kdr
[2020-07-29 12:13] VITALS: O2SAT 99
[2020-07-29 12:14] VITALS: BP 152/78; TEMP 97.9
== END 2020-07-29 11:59 | disposition home or self-care (01) ==
LOC: ER 07:16
DX: N93.9 Abnormal uterine and vaginal bleeding, unspecified (principal); K62.5 Hemorrhage of anus and rectum; F32.9 Major depressive disorder, single episode, unspecified; Z79.82 Long term (current) use of aspirin; Z86.73 Personal history of transient ischemic attack (TIA), and cerebral infarction without residual deficits
CPT/HCPCS: 85025; 80048; 36415; 80076; 82272; 81003; 83690; 74177; 99284; Q9967

== ENCOUNTER 2020-08-03 07:56 | Day surgery (SDC) | payer OTHER ==
[~2020-08-03 07:56] MED LIST: Ringers Lactate 1,000 ML IV SCH
--- OUTSIDE RECORDS SUMMARY | 2020-08-03 08:03 | XMS REPORT | Continuity of Care Document ---
:1935 Author Organization [facility] t Address [address] [place] [address] Care Team Providers Name Role Phone Unavailable Unavailable Unavailable Problems Condition Condition Condition Status Onset Resolution Last Treating Co mments Source Name Details Category Date Date Treatment Clinician Date CVA CVA Disease Active [facility]cerebral [facility]-09 [place] - vascular vascular 00:00: Medica l accident) accident) 00 Cent er Allergies, Adverse Reactions, Alerts Allergy Allergy Status Severity Reaction(s) Onset Inactive Treating Comm ents Source Name Type Date Date Clinician Salicyla Drug Active Other (See Pt stated [facility] Intol[facility] Comments) 06-08 "bleeding Rafaela kes - nce 00:00: " Medical 00 [place] Rosuvast Drug Active [facility] 00:[facility]: Medical 00 Center Desvenla Drug Active [facility]ine [facility] 06[facility]08 [facility] - [facility]ce 00:00: Medical 00 Center Ezetimib Drug Active [facility] 06-08 [facility] - t[facility] nce 00:00: Medical 00 [place] Social History Social Habit Start Date Stop Date Quantity Comments Source Sex Assigned At [facility] Alcohol intake 2016-06-08 2016-06-[address] [facility] es - 00:00:00 [facility]00 [facility] Center Smoking Status Start Date Stop Date Source Never smoker [facility] Medications Ordered Filled Start Stop Current Ordering Indication Dosage Frequency Signature Comments Components Source Medication Medication Date Date Medication? Clinician (SIG) Name Name mecjazminzine Yes 25mg Take [address] (ANTIVERT) 06-09 by mouth [facility] - 25 MG 13:23: daily as Medical tablet 49 needed for Center Dizziness. BIOTIN ORAL Yes Take by [facility] St 06-09 mouth. [facility] - 13:23: [place] [address] [facility] estrogens -03 vaginally. Luke s - (PREMARIN) 13:23: Medical 0.625 Center mg/gram vaginal cream DOCOSAHEXAN Yes Take by [facility] OIC 06-09 mouth. [facility] - ACID/EPA 13:23: Medical (FISH OIL 49 Center ORAL) GLUCOSAMINE Yes Take by [facility] /CHONDROITI 06-09 mouth. [facility] - N SULF A 13:23: Medical (GLUCOSAMIN Center E-CHONDROIT IN ORAL) coenzyme Yes QD Take by [facility] Q10 06-09 mouth [facility] - (COQ-10) 13:23: daily. Medical 100 mg Center capsule CHOLECALCIF Yes Take by [facility] RENAE, 06-09 mouth. [facility] - VITAMIN D3, 13:23: Medica l (VITAMIN D3 49 Center ORAL) CALCIUM-MAG Yes Take by [facility] NESIUM-ZINC 06-09 mouth. [facility] - ORAL 13:23: [place] [address] Center nutritional Yes Take by [facility] supplement 06-09 mouth. [facility] - - fiber 13:23: Medical (JUICE Center PLUS) Liqd Procedures This patient has no known procedures. Encounters Start End Encounter Admission Attending Care Care Encounter Source Date/Time Date/Time Type Type Clinicians Facility Department ID 2020-07-05 2020-07-05 Outpatient [facility] [id number] [facility] 00:00:00 00:00:00 [facility] Results This patient has no known results.
--- OUTSIDE RECORDS SUMMARY | 2020-08-03 08:03 | XMS REPORT ---
:[address] [facility] Address [address] [address] [place] [address] Care Team Providers Name Role Phone Sourav Bermudez Unavailable [phone] PROBLEMS No Information ALLERGIES No Known Allergies ENCOUNTERS from 1935 to 2020-07-07 Encounter Location Date Provider Diagnosis [facility] [address] Jun, Sourav Bermudez Pain , joint, [facility] [address], right [place], [place] M25.511 ; Subac romial [id number] bursitis of rig ht shoulder joint M75.51 and Bicipital tendinitis of r ight shoulder M75.21 IMMUNIZATIONS Vaccine Route Administration Date Status Bupivicaine [place] Unknown Jul 05, 2020 Administered Kenalog (Triamcinolone) [...] Order Date X-RAY EXAM SHOULDER 2 VIEWS ([id number]) 2020-07-07 Next Appt Details prn Reason: Insurance Providers Payer Name Payer Address Payer Insured Patient Coverage Cover age End Phone Name Relationship to Start Date Edward e Insured [employer] [address] [address] [phone] Jerome Yi MEDICARE [place] e [id number]
--- OUTSIDE RECORDS SUMMARY | 2020-08-03 08:03 | XMS REPORT | Clinical Summary ---
:1935 Author Organization [facility] Address [address] [place] [address] Care Team Providers Name Role Phone Unavailable [...] mouth. 0 Active D3, (VITAMIN D3 ORAL) [id number] Take by mouth. 0 Active ORAL nutritional [...] Not on file Results Not on fileafter 08/03/2019 Insurance Payer Benefit Plan / Subscriber ID Effective Dates Phone Addre ss Type Group MEDICARE MEDICARE A B [id number] 1999-Present Medicare AETNA - MGD CARE AETNA TRS [id number] 2012-Presen HMO/POS RETIREES t
[2020-08-03] MEDS ORDERED: Ringers Lactate 1,000 ML IV ONE (08:13)
[2020-08-03 08:19] VITALS: O2SAT 100
[2020-08-03] MEDS ORDERED: LIDOCAINE 1% W/EPI 1:100,000 MDV 20 ML VIAL ONE ×2 (08:28→08:38)
[2020-08-03] MEDS ORDERED: SILVER NITRATE 1 APPL TOP ONE (08:28)
[2020-08-03] MEDS ORDERED: NA CHLORIDE 0.9% 1,000 ML ONE (08:29)
[2020-08-03] MEDS ORDERED: propofoL 200 MG/20 ML VIAL IV ONE (08:44)
[2020-08-03] MEDS ORDERED: ONDANSETRON 4 MG/2 ML VIAL ONE (08:46)
[2020-08-03] MEDS ORDERED: LIDOCAINE 2% MPF 5 ML VIAL ONE (08:46)
[2020-08-03] MEDS ORDERED: CEFAZOLIN SODIUM 1 GM/VIAL ONE (09:03)
[2020-08-03 09:29] VITALS: BP 135/64; TEMP 98.3
--- NOTE | 2020-08-03 13:00 | EKG ---
Test Date: 2020-08-02 Test Time: 13:33:01 Crate Opener: JULIANA MEASUREMENT RESULTS: Intervals: Rate: 76 AR: 178 QRSD: 76 QT: 368 QTc: 414 [place]: P: 72 AR: 178 QRS: 54 T: 82 INTERPRETIVE STATEMENTS: Normal sinus rhythm Low voltage QRS Nonspecific ST abnormality Abnormal ECG Compared to ECG 03/12/2019 11:42:34 Low QRS voltage now present ST (T wave) deviation now present Myocardial infarct finding no longer present Electronically Signed On 08-03-20 12:59:16 CDT by Rodri Randall
--- NOTE | 2020-08-04 00:25 | OP ---
Date of Procedure: 08/03/2020 Surgeon: Prema Cordero MD Preoperative Diagnoses: Postmenopausal bleeding and prolapse. Postoperative Diagnoses: Postmenopausal bleeding and prolapse. Main complaint is postmenopausal ble eding. The patient has known to have prolapse since last year. Procedure Performed: Diagnostic hysteroscopy and endometrial biopsy with a Pipelle. Anesthesia: MAC with paracervical block. Specimens: Endometrial Pipelle biopsy. Complications: No complications. Drains: No drains. Estimated Blood Loss: Minimal. Condition: Stable. Ancef 2 g given. Indications: The patient is an 85-year-old woman with known history of prolapse, evaluated last year , however, presented now with complaints of postmenopausal bleeding, for which she went to the ER wit h sudden onset bleeding. Her CT scan was done where there was a fluid-filled in the endometrial cavi ty, probably tissue as well. As she was bleeding, she was sent over here for evaluation. On physical examination, she had a very clear evidence of bleeding from her cervix. No other bleedin g was seen. Urine was negative for any blood. No rectal blood was noted and the patient denied any bleeding from here as well. After noting this d espite the absence of a transvaginal ultrasound and with her concern for bleeding, plan was to do an endometrial sampling procedure to rule out atypia or malignancy of the uterus. Given her age and her complex situation with a prolapse and high risk for perforation, she was taken to the OR. All these were discussed with the patient's son in the room and he completely understood the risks of bleeding , infection, perforation as she is postmenopausal. Description Of Procedure: After informed consent was verified this morning, she was taken back to OR and placed in supine fashion on the operating table. After MAC was given, she was placed in dorsal lithotomy position and speculum placed to expose the cervix. Anterior lip was injected with 1% lidoc jamel mixed with 1:100,000, 5 cc was given in 4 and 8 o'clock positions of the cervicovaginal junction . Paracervical block was given 4 cc each and then at 3 and 9 o'clock positions 3 cc each. Prepped w ith Betadine x3 was done and diagnostic hysteroscope was taken and carefully placed at the external o s. Once carefully the fluid was opened up, the canal was followed approximately in about 1.5 cm of a dvancement into the cervical canal. I was able to see an opening, which clearly did not have to be o pened up and once I went into this, there was a large amount of dark blood that drained, so drainage was done through the outlet channel of the hysteroscope and once this was done, still there was no cl ear vision and it was very difficult to visualize the german. However, there is always a concern of t he perforation, so after this was done, I pulled the scope back and gently took a plastic endometrial Pipelle and advanced it and at 7 cm, the fundus was reached, slightly less than that. No evidence o f perforation was noted by assessment using this Pipelle. Scope was reintroduced and still had the s yokasta problem with visualization of the wall, so I decided to perform a biopsy without a curette, so Mick gerard was used to perform this. Three swipes were taken, fluid was obtained. On the first 2, there was a small amount of tissue, but if this is all that I could get and that is what we would do and at was handed off for permanent pathology, all the instruments were removed. Instrument, needle, and sponge counts were done and were correct at the end of the case. She was recovered from anesthesia without any problems and taken to the PACU in stable condition. Plan: Follow up her pathology and discuss with her findings and order a transvaginal ultrasound for reassessment of the cavity now that the cavity was draining from the fluid, which is consistent with the CT findings. So, we will reassess her endometrial cavity. The transvaginal ultrasound from last year showed endometrial stripe of only 5.2 mm. This was assessed even though she had no bleeding fo r her prolapse and for ruling out any pathology in her uterus. This is a significant change from wha t was in the past. The patient is also on a blood thinner. So, the bleeding could be from this. Sh rose was on aspirin, so this could be also a source of bleeding. We will first find out what the Pipell e biopsy shows and if she has recurrent bleeding and inconclusive after reassessment with an ultrasou nd, then we can discuss the various options for resampling. She will see me in 1 week. She has this appointment. I looked for her son in the postoperative area, but I was unable to find him. Finding s will be discussed at the appointment. ROMARIO/MODL Voice ID: [id number] Report ID: [id number]
== END 2020-08-03 09:54 | disposition home or self-care (01) ==
LOC: OR 07:56
PROVIDERS: ATTEND Obstetrics & Gynecology
PROC: 0UDB8ZX Extraction of Endometrium, Via Natural or Artificial Opening Endoscopic, Diagnostic (ICD-10-PCS; principal; 2020-08-03 09:00)
DX: N95.0 Postmenopausal bleeding (principal); N81.2 Incomplete uterovaginal prolapse; N95.2 Postmenopausal atrophic vaginitis; E78.00 Pure hypercholesterolemia, unspecified; K21.9 Gastro-esophageal reflux disease without esophagitis; F32.9 Major depressive disorder, single episode, unspecified; Z20.828 Contact with and (suspected) exposure to other viral communicable diseases; Z79.82 Long term (current) use of aspirin; Z86.73 Personal history of transient ischemic attack (TIA), and cerebral infarction without residual deficits; Z80.3 Family history of malignant neoplasm of breast; Z80.0 Family history of malignant neoplasm of digestive organs
CPT/HCPCS: 93005; 88305; 58558; U0002; J2704; J7120; J7030; J2405; J0690